=== PATIENT | female | born 1995 | race Caucasian/White ===

== ENCOUNTER 2022-06-23 21:56 | Emergency (ER) | payer OTHER ==
[~2022-06-23] VITALS: Ht 165.1 cm; Wt 99.5 kg
[2022-06-24] MEDS ORDERED: KETOROLAC 60MG/2ML VIAL IM STA (02:23)
[2022-06-24] MEDS ORDERED: METOCLOPRAMIDE HCL 10MG/2ML VIAL IM STA (02:23)
[2022-06-24 03:38] LABS: CLARITY URINE CLEAR (CLEAR); COLOR URINE YELLOW (YELLOW); KETONES URINE 2+ (NEGATIVE); LEUKOCYTE ESTERASE URINE TRACE (NEGATIVE); NITRITE URINE NEGATIVE (NEGATIVE); OCCULT BLOOD URINE NEGATIVE (NEGATIVE); PH URINE 5.5 (4.5-8.0); PROTEIN URINE NEGATIVE (NEGATIVE); SPECIFIC GRAVITY URINE 1.007 (1.005-1.030); UROBILINOGEN URINE 0.2 E.U./dL (0.2-1.0)
[2022-06-24 04:00] LABS: BASOPHILS % 0.5 % (0.0-2.0); EOSINOPHILS % 0.3 % (0.0-5.0); HEMATOCRIT. 43.3 % (36.0-48.0); HEMOGLOBIN. 14.8 g/dL (12.0-16.0); LYMPHOCYTES % 12.9 % (20.0-50.0); MONOCYTES % 9.7 % (2.0-8.0); NEUTROPHILS % 76.6 % (40.0-76.0); PLATELET 293 x1000/uL (130-400); RED BLOOD CELL COUNT 5.28 mill/uL (4.2-5.4); RED CELL DISTRIBUTION WIDTH 13.3 % (11.6-14.6)
[2022-06-24 04:11] LABS: CHLORIDE 103 mEq/L (98-107)
[2022-06-24] MEDS ORDERED: KETOROLAC 60MG/2ML VIAL IM NR (04:45)
[2022-06-24] MEDS ORDERED: METOCLOPRAMIDE HCL 10MG/2ML VIAL IM NR (04:45)
[2022-06-24 05:15] VITALS: BP 110/75
[2022-06-24] MEDS ORDERED: ONDA4TAB50 PO ×3 (05:26→05:27)
[2022-06-24] MEDS ORDERED: ALBU18HF2 IH ×3 (05:26→05:27)
[2022-06-24] MEDS ORDERED: NAPR-681 PO ×3 (05:26→05:27)
== END 2022-06-24 05:30 | disposition home or self-care (01) ==
LOC: ER 21:56
DX: B34.9 Viral infection, unspecified (principal)
CPT/HCPCS: 36415; 80053; 81003; 85025; 87070; 87430; 87804; 96372; 99284; J1885; J2765